=== PATIENT | male | born 1985 | race Caucasian/White ===

== ENCOUNTER 2021-08-20 17:43 | Emergency (ER) | payer SELFPAY ==
[~2021-08-20] VITALS: Ht 175.3 cm; Wt 82.0 kg
[2021-08-20 18:06] VITALS: BP 122/66
[2021-08-20 18:18] LABS: BASOPHILS % 0.6 % (0.0-2.0); EOSINOPHILS % 2.6 % (0.0-5.0); HEMOGLOBIN. 13.5 g/dL (14.0-18.0); LYMPHOCYTES % 16.9 % (20.0-50.0); MEAN CORPUSCULAR HEMOGLOBIN 28.4 pg (28.0-32.0); MEAN CORPUSCULAR VOLUME 84.4 fL (80.0-94.0); MEAN PLATELET VOLUME 8.1 fl (7.4-10.4); MONOCYTES % 8.9 % (2.0-8.0); PLATELET 251 x1000/uL (130-400); RED BLOOD CELL COUNT 4.75 mill/uL (4.7-6.1); RED CELL DISTRIBUTION WIDTH 12.8 % (11.6-14.6)
[2021-08-20 18:26] LABS: CHLORIDE 106 mEq/L (98-107)
[2021-08-20 18:31] LABS: ETHANOL BLOOD < 10 mg/dL
== END 2021-08-20 19:39 | disposition left against medical advice (07) ==
LOC: ER 17:43
DX: T40.601A Poisoning by unspecified narcotics, accidental (unintentional), initial encounter (principal); E87.6 Hypokalemia; D64.9 Anemia, unspecified; Y92.59 Other trade areas as the place of occurrence of the external cause
CPT/HCPCS: 36415; 80053; 80307; 80320; 80329; 82140; 85025; 99283; G0480